=== PATIENT | female | born 1965 | race Two or more races ===

== ENCOUNTER 2019-07-26 17:36 | Emergency (ER) | payer SELFPAY ==
[~2019-07-26] VITALS: Ht 149.9 cm; Wt 100.0 kg
[2019-07-26] MEDS ORDERED: ONDANSETRON HCL 4MG/2ML INJ IV STA (23:01)
[2019-07-26] MEDS ORDERED: MECLIZINE 25MG TABLET PO ONE (23:15)
[2019-07-27 00:30] VITALS: BP 140/80
[2019-07-27 00:35] LABS: BASOPHILS % 0.9 % (0.0-2.0); EOSINOPHILS % 2.8 % (0.0-5.0); HEMOGLOBIN. 13.7 g/dL (12.0-16.0); LYMPHOCYTES % 30.4 % (20.0-50.0); MEAN CORPUSCULAR HEMOGLOBIN 30.6 pg (28.0-32.0); MEAN CORPUSCULAR VOLUME 89.1 fL (81.0-99.0); MEAN PLATELET VOLUME 7.8 fl (7.4-10.4); NEUTROPHILS % 60.9 % (40.0-76.0); PLATELET 372 x1000/uL (130-400); RED BLOOD CELL COUNT 4.49 mill/uL (4.2-5.4)
[2019-07-27 00:40] LABS: CHLORIDE 106 mEq/L (98-107); PARTIAL THROMBOPLASTIN TIME 26.6 sec (23.4-31.0); PROTHROMBIN TIME 10.6 sec (9.6-11.0)
[2019-07-27 00:46] LABS: ETHANOL BLOOD < 10 mg/dL
== END 2019-07-27 01:10 | disposition home or self-care (01) ==
LOC: ER 17:36
DX: R42 Dizziness and giddiness (principal); R11.0 Nausea
CPT/HCPCS: 36415; 70450; 71045; 80053; 80320; 82962; 83690; 83880; 84484; 85025; 85610; 85730; 93005; 96374; 99285; J2405; J8597; G0480

== ENCOUNTER 2022-09-29 00:55 | Inpatient (IN) | payer MEDICAID, OTHER ==
[~2022-09-29] VITALS: Ht 152.4 cm; Wt 72.6 kg
[2022-09-29] MEDS ORDERED: MECLIZINE 12.5MG TABLET PO ONE (03:15)
[2022-09-29 03:50] LABS: BASOPHILS % 0.7 % (0.0-2.0); EOSINOPHILS % 0.5 % (0.0-5.0); HEMATOCRIT. 37.7 % (36.0-48.0); LYMPHOCYTES % 15.6 % (20.0-50.0); MEAN CORPUSCULAR HEMOGLOBIN 30.3 pg (28.0-32.0); MEAN CORPUSCULAR VOLUME 87.9 fL (81.0-99.0); MEAN PLATELET VOLUME 7.8 fl (7.4-10.4); MONOCYTES % 4.9 % (2.0-8.0); NEUTROPHILS % 78.3 % (40.0-76.0); PLATELET 407 x1000/uL (130-400); RED BLOOD CELL COUNT 4.29 mill/uL (4.2-5.4); RED CELL DISTRIBUTION WIDTH 13.2 % (11.6-14.6)
[2022-09-29 03:59] LABS: CHLORIDE 100 mEq/L (98-107)
[2022-09-29 04:18] LABS: ETHANOL BLOOD < 10 mg/dL
[2022-09-29] MEDS ORDERED: SODIUM CHLORIDE 0.9% 1,000 ML IV ONE (05:45)
[2022-09-29 09:15] VITALS: BP 136/74
[2022-09-29] MEDS ORDERED: ACETAMINOPHEN 325MG TABLET PO PRN (11:00)
[2022-09-29] MEDS ORDERED: CLONIDINE 0.1MG TABLET PO PRN (11:00)
[2022-09-29] MEDS ORDERED: ONDANSETRON HCL 4MG/2ML INJ IV PRN (11:00)
[2022-09-29] MEDS ORDERED: MAGNESIUM/ALUMINUM HYDROXIDE/SIMETHICONE 30ML UDC PO PRN (11:00)
[2022-09-29] MEDS ORDERED: SODIUM CHLORIDE 0.9% 1,000 ML IV SCH (11:15)
[2022-09-29 12:00] VITALS: BP 135/76
[2022-09-29] MEDS ORDERED: ENOXAPARIN 40MG/0.4ML SYR SUBCUT SCH (12:00)
[2022-09-29] MEDS ORDERED: CEFTRIAXONE 1,000 MG in DEXTROSE 5% WATER 50 ML IV SCH (12:30)
[2022-09-29 16:00] VITALS: BP 112/60
[2022-09-29 20:36] VITALS: BP 109/45
[2022-09-29] MEDS ORDERED: FAMOTIDINE 20MG TABLET PO SCH (21:00)
[2022-09-29 22:23] LABS: CREATINE KINASE MB FRACTION 1.3 ng/mL (0.5-3.6)
[2022-09-29 23:45] VITALS: BP 128/66
[2022-09-30 04:00] VITALS: BP 145/76
[2022-09-30 08:00] VITALS: BP 144/74
[2022-09-30 08:17] LABS: BASOPHILS % 0.5 % (0.0-2.0); EOSINOPHILS % 3.2 % (0.0-5.0); HEMATOCRIT. 38.5 % (36.0-48.0); LYMPHOCYTES % 32.1 % (20.0-50.0); MEAN CORPUSCULAR HEMOGLOBIN 30.2 pg (28.0-32.0); MEAN CORPUSCULAR VOLUME 89.4 fL (81.0-99.0); MEAN PLATELET VOLUME 8.2 fl (7.4-10.4); MONOCYTES % 6.2 % (2.0-8.0); PLATELET 419 x1000/uL (130-400); RED BLOOD CELL COUNT 4.31 mill/uL (4.2-5.4); RED CELL DISTRIBUTION WIDTH 13.2 % (11.6-14.6)
[2022-09-30 08:38] LABS: CHLORIDE 105 mEq/L (98-107)
[2022-09-30 08:47] LABS: T4 FREE 0.87 ng/dL (0.76-1.46)
[2022-09-30 10:08] VITALS: BP 144/74
== END 2022-09-30 11:35 | disposition home or self-care (01) | DRG 811 ==
LOC: ER 00:55 → 6EST 05:28 → ENRESERV 06:58
PROVIDERS: ADMIT Internal Medicine; ATTEND Internal Medicine
DX: T78.3XXA Angioneurotic edema, initial encounter (principal); D72.829 Elevated white blood cell count, unspecified; I95.1 Orthostatic hypotension; F41.0 Panic disorder [episodic paroxysmal anxiety]; E11.9 Type 2 diabetes mellitus without complications
CPT/HCPCS: 36415; 71045; 80053; 80320; 82140; 82550; 82553; 83880; 84439; 84443; 84484; 85025; 93005; 93306; 93970; 99285; C1893; J0696; J1650; J7030; J7060; G0480